=== PATIENT | female | born 2000 | race Caucasian/White ===

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

== ENCOUNTER 2021-03-02 15:05 | Outpatient (REF) | payer MEDICAID, SELFPAY ==
[2021-03-04 01:23] LABS: COVID-19 RT-PCR UVMMC Result Negative (Negative)
== END 2021-03-02 15:06 | disposition home or self-care (01) ==
LOC: LBN 15:05
PROVIDERS: PCP Pediatrics; Visit Provider Physician Assistant Medical
DX: Z20.822 Contact with and (suspected) exposure to COVID-19 (principal); R05 Cough; J02.9 Acute pharyngitis, unspecified
CPT/HCPCS: U0003

== ENCOUNTER 2021-04-25 15:08 | Outpatient (REF) | payer MEDICAID, SELFPAY ==
[2021-04-26 16:22] LABS: COVID-19 RT-PCR UVMMC Result Negative (Negative)
== END 2021-04-25 15:09 | disposition home or self-care (01) ==
LOC: LBN 15:08
PROVIDERS: PCP Pediatrics; Visit Provider Nurse Practitioner Family
DX: Z20.822 Contact with and (suspected) exposure to COVID-19 (principal); J06.9 Acute upper respiratory infection, unspecified
CPT/HCPCS: U0003

== ENCOUNTER 2021-09-12 16:35 | Outpatient (REF) | payer MEDICAID, SELFPAY ==
[2021-09-14 15:00] LABS: Chlamydia Result Negative (Negative); GC Result Negative (Negative)
== END 2021-09-12 16:36 | disposition home or self-care (01) ==
LOC: LBN 16:35
PROVIDERS: PCP Pediatrics; Visit Provider Nurse Practitioner Women's Health
DX: Z11.3 Encounter for screening for infections with a predominantly sexual mode of transmission (principal)
CPT/HCPCS: 87491; 87591

== ENCOUNTER 2021-10-22 14:09 | Outpatient (REF) | payer MEDICAID, SELFPAY ==
[2021-10-24 11:59] LABS: COVID-19 RT-PCR UVMMC Result Negative (Negative)
== END 2021-10-22 14:10 | disposition home or self-care (01) ==
LOC: LBN 14:09
PROVIDERS: PCP Pediatrics; Visit Provider Physician Assistant Medical
DX: Z20.822 Contact with and (suspected) exposure to COVID-19 (principal)
CPT/HCPCS: U0003

== ENCOUNTER 2022-07-08 09:39 | Emergency (ER) | payer MEDICAID, SELFPAY ==
[2022-07-08 09:43] VITALS: BP 130/85; PULSE 96; RESP 18; TEMP 36.7; O2SAT 97
--- NOTE | 2022-07-08 09:48 | NUR.NOTE ---
Nursing Note: pt states she has had multiple episodes of vomiting, dry having and diarrhea since waking up this am. pt does note that she at new [employer] ch[employer] last night and ate not fully cooked pancakes yesterday. Pt did try and drink fluids prior to arrival but was unable to tolerate them. Pt endorses 10 episodes of vomiting and dry heaving this am.
--- NOTE | 2022-07-08 10:17 | W.ED.GENAD ---
Discharge Plan Disposition Patient Disposition: Home Condition: Stable Discharge Details Clinical Impression: Nausea vomiting and diarrhea, Cannabinoid hyperemesis syndrome Primary Care Provider: Clare Limon ED Provider: Marilyn Lewis Home Meds and New Rx's Prescriptions: New promethazine [Promethegan] 25 mg suppository 25 mg CA Q6H PRN (Reason: nausea and vomiting) Qty: 12 0RF Rx Instructions: Use 1 suppository as needed for unresolved nausea vomiting No Action aripiprazole [Abilify] 5 mg tablet 5 mg PO DAILY fluvoxamine 50 mg tablet 50 mg PO DAILY Nexplanon 68 mg implant 1 implant subdermal ONCE Qty: 1 0RF Rx Instructions: as a single dose norethindrone-e.estradiol-iron [ FE 1.5/30 (28)] 1.5 mg-30 mcg (21)/75 mg (7) tablet 1 tab PO DAILY Qty: 28 0RF Discharge Instructions Instructions: Acute Nausea and Vomiting (ED) Additional Instructions: Please abstain from smoking marijuana for approximately 3 days to see if this resolves her symptoms. I was able to speak with pediatric general surgeon Dr. Avila at [facility] who was able to look at the results. She does not suspect an abscess. I do suspect a gastroenteritis Please take nausea medication as prescribed if needed. Bowel rest, advance as tolerated. If this gets worse or returns please follow-up with the pediatric general surgeon's office at [facility] or you may return to the ER if needed. Please call Dr. Pranav Mcgovern With Pediatric General Surgery if needed for Follow up [address] [place], [place] [id number] Follow up with primary care provider in 1-2 days if needed. Return to ED sooner if any worsening or concerns. Increase oral fluids. You may also try to apply capsaicin cream to your abdomen which she can get [id number]. Referrals: [facility] [Outside] Clare Limon [Primary Care Provider] - 2 weeks Discharge Data Discharge Date/Time-TO BE ENTERED AT DEPARTURE: 07/08/22 15:08 Medical Decision Making 22-year-old female presents to the ER with a chief complaint of nausea vomiting diarrhea which began acutely this morning. She does endorse sick contacts. Including her mom and she was in contact with recently. She reports generalized abdominal pain. She is vomiting up clear bilious material. She does have a history of cholecystectomy and history of Nicole-en-Y gastric bypass. She does endorse daily marijuana use, denies any other illicit drugs or alcohol. Work-up ordered including CBC CMP, lipase, urinalysis urine will consider UDS liter of normal saline and 4 Zofran. Will consider imaging pending labs. Verbal diagnosis includes but not limited to gastroenteritis, bacterial gastroenteritis, viral gastroenteritis, hyperemesis cannabinoid syndrome, bowel obstruction, appendicitis. 1051: Critical result obtained from the lab White blood cell count 25,036, she does have a left shift 23.69, upon medication record review patient does have a history of a torn esophagus with viscous air, CT chest abdomen pelvis with contrast ordered due to leukocytosis. Patient does report that she is feeling somewhat better and the nausea medication has helped. 1107: CMP is pending at this time. 1230: Spoke with [facility] regarding CT result radiologist reports that there is fluid and air levels in the gallbladder fossa of concern for possible abscess similar to prior study in October 2019, dilated intrahepatic biliary ducts with free air. See result below. She did report that this is similar to the CT from . 1233: Surgery paged for consultation. 1258: Spoke with Dr. Lugo he recommends 1310:Consult with possible transfer, with [facility] Surgery, Spoke with [facility], they report the are at capacity, Surgery to call me back, images reuested to be pushed by Radiology. 1320: Repeat CBC ordered to ree-kai white blood cell count, patient is complaining of nausea again for milligrams of Zofran ordered. Patient has received 2 L of saline and is infusing without difficulty. Repeat CBC shows white blood cell count that has decreased to 23. 1440: [facility] Pediatric General Surgeon Dr. Dana Dorantes Discussed patient case and details, she was able to personally view the CT abd Pelvis and compare her old exams, she is not super concerned for cholangitis or acute obstruction, She has no elevated lipase, no increased bilirubin, she does not think this is an abscess. She does state that if this continues that patient can follow-up with [facility] pediatric general surgeon office Dr. Miguelito angel or with her. I will give patient some Zofran to go. And discussed strict return instructions. This text was generated using Inforce[employer]ation system, please disregard any oddities of phrase or misspellings. Medical Records Medical records reviewed: Yes I reviewed the patient's medical records. Imaging Data Radiologic Study: Imaging: CT Scan Radiologist's impression: COMPARISON: CT CHEST PE ABD PELVIS W 05/22/2020 23:40 FINDINGS: Lungs: Unremarkable. No consolidation. No masses. Pleural spaces: Unremarkable. No pneumothorax. No pleural effusion. Heart: Unremarkable. No cardiomegaly. No pericardial effusion. Mediastinal space: Residual thymus remaining. Lymph nodes: Unremarkable. No enlarged lymph nodes. Vasculature: Unremarkable. No aortic aneurysm. TARA TOLEDO Preliminary Radiology Report Page 2 of 3 Bones/joints: Unremarkable. No acute fracture. Soft tissues: Unremarkable. IMPRESSION: No acute findings. COMPARISON: CT ABDOMEN PELVIS W 02/04/2019 23:52 FINDINGS: Diaphragm: Hiatal hernia. Liver: Normal. No mass. Gallbladder and bile ducts: Dilated intrahepatic biliary ducts with air. A collection of fluid and air in the gallbladder fossa measuring 5.1 x 2.9 cm. Pancreas: Normal. No ductal dilation. Spleen: Normal. No splenomegaly. Adrenal glands: Normal. No mass. Kidneys and ureters: Normal. No hydronephrosis. Stomach and bowel: A loop of small bowel extends near or into the gallbladder fossa. Fluid and air filled dilated small bowel left upper quadrant. Fluid-filled stomach. Appendix: No evidence of appendicitis. Intraperitoneal space: Unremarkable. No free air. No significant fluid collection. Vasculature: Unremarkable. No abdominal aortic aneurysm. Lymph nodes: Mesenteric lymph nodes. Urinary bladder: Patient is status post cystectomy by history. Reproductive: Unremarkable as visualized. Bones/joints: Unremarkable. No acute fracture. Soft tissues: Unremarkable. IMPRESSION: 1. Free air and free fluid in the gallbladder fossa of concern for possible abscess similar to prior study October 2019. Dilated intrahepatic biliary ducts with free air. Cholecystectomy. 2. Fluid and air distended small bowel left upper quadrant measuring 3.2 cm may represent ileus or early obstruction. 3. Additional findings as discussed above. Lab Data Lab results reviewed: Yes I reviewed the patient's lab results. Labs: Laboratory Tests Range/Units 07/08/22 07/08/22 07/08/22 10:35 10:35 11:18 WBC (4.4-10.8) 10^3/uL 25.36 H* RBC (3.93-5.22) 10^6/uL 5.21 Hgb (11.2-15.7) g/dL 14.5 Hct (36.0-46.0) % 43.7 MCV (80-95) fL 84 MCH (27.0-33.0) pg 27.8 MCHC (32.0-36.0) % 33.2 RDW (11.7-14.6) % 12.5 Plt Count (130-400) 10^3/uL 333 MPV (8.0-11.0) fL 9.2 Immature Gran % 0.6 Neutrophils % 93.4 Lymphocytes % 1.8 Monocytes % 3.8 Eosinophils % 0.1 Basophils % 0.3 Nucleated RBC % (0.0-0.3) % 0.0 Absolute Neutrophils (1.2-6.7) 10^3/uL 23.69 H Absolute Lymphocytes (1.2-3.4) 10^3/uL 0.46 L Absolute Monocytes (0.1-0.8) 10^3/uL 0.96 H Absolute Eosinophils (0.0-0.7) 10^3/uL 0.03 Absolute Basophils (0.0-0.2) 10^3/uL 0.08 Sodium (136-145) mmol/L 141 Potassium (3.5-5.1) mmol/L 3.8 Chloride (98-107) mmol/L 105 Carbon Dioxide (21.0-32.0) mmol/L 26.6 Anion Gap (3-11) mmol/L 9.4 BUN (7-18) mg/dL 12 Creatinine (0.55-1.02) mg/dL 1.0 Est GFR (CKD-EPI 2020) (mL/min/1.73m2) 82.20 Glucose (74-106) mg/dL 137 H Calcium (8.5-10.1) mg/dL 9.3 Magnesium (1.8-2.4) mg/dL 1.6 L Total Bilirubin (0.2-1.0) mg/dL 0.8 AST (15-37) U/L 16 ALT (14-59) U/L 18 Alkaline Phosphatase (46-116) U/L 67 Total Protein (6.4-8.2) g/dL 8.6 H Albumin (3.4-5.0) g/dL 4.6 Lipase (73-393) U/L 99 Urine Color (Yellow) Yellow Urine Clarity (Clear) Clear Urine pH (5-8) 7.0 Ur Specific [place] (1.005-1.025) 1.025 Urine Protein (Negative) mg/dL Trace H Urine Ketones (Negative) mg/dL Negative Urine Blood (Negative) Negative Urine Nitrite (Negative) Negative Urine Bilirubin (Negative) Negative Urine Urobilinogen (Up TO 0.2) EU/dL 0.2 Ur Leukocyte Esterase (Negative) Negative Urine RBC (0-2) HPF Negative Urine WBC (0-5) HPF Negative Ur Epithelial Cells (Negative) HPF Few Urine Crystals (Negative) HPF Negative Urine Bacteria (Negative) HPF Negative Urine Casts (Negative) LPF Negative Urine Mucus (Negative) Trace Ur Culture Indicated? No Urine Glucose (Negative) mg/dL Negative Range/Units 07/08/22 13:26 WBC (4.4-10.8) 10^3/uL 23.41 H RBC (3.93-5.22) 10^6/uL 4.62 Hgb (11.2-15.7) g/dL 13.1 Hct (36.0-46.0) % 39.2 MCV (80-95) fL 85 MCH (27.0-33.0) pg 28.4 MCHC (32.0-36.0) % 33.4 RDW (11.7-14.6) % 12.5 Plt Count (130-400) 10^3/uL 287 MPV (8.0-11.0) fL 9.0 Immature Gran % Neutrophils % Lymphocytes % Monocytes % Eosinophils % Basophils % Nucleated RBC % (0.0-0.3) % Absolute Neutrophils (1.2-6.7) 10^3/uL Absolute Lymphocytes (1.2-3.4) 10^3/uL Absolute Monocytes (0.1-0.8) 10^3/uL Absolute Eosinophils (0.0-0.7) 10^3/uL Absolute Basophils (0.0-0.2) 10^3/uL Sodium (136-145) mmol/L Potassium (3.5-5.1) mmol/L Chloride (98-107) mmol/L Carbon Dioxide (21.0-32.0) mmol/L Anion Gap (3-11) mmol/L BUN (7-18) mg/dL Creatinine (0.55-1.02) mg/dL Est GFR (CKD-EPI 2020) (mL/min/1.73m2) Glucose (74-106) mg/dL Calcium (8.5-10.1) mg/dL Magnesium (1.8-2.4) mg/dL Total Bilirubin (0.2-1.0) mg/dL AST (15-37) U/L ALT (14-59) U/L Alkaline Phosphatase (46-116) U/L Total Protein (6.4-8.2) g/dL Albumin (3.4-5.0) g/dL Lipase (73-393) U/L Urine Color (Yellow) Urine Clarity (Clear) Urine pH (5-8) Ur Specific [place] (1.005-1.025) Urine Protein (Negative) mg/dL Urine Ketones (Negative) mg/dL Urine Blood (Negative) Urine Nitrite (Negative) Urine Bilirubin (Negative) Urine Urobilinogen (Up TO 0.2) EU/dL Ur Leukocyte Esterase (Negative) Urine RBC (0-2) HPF Urine WBC (0-5) HPF Ur Epithelial Cells (Negative) HPF Urine Crystals (Negative) HPF Urine Bacteria (Negative) HPF Urine Casts (Negative) LPF Urine Mucus (Negative) Ur Culture Indicated? Urine Glucose (Negative) mg/dL HPI General Mode of arrival: ambulatory. Date/Time Provider Initiated Documentation: 07/08/22 10:11. Limitations to Documentation: no limitations. Information obtained by: patient, RN notes reviewed and old records reviewed. HPI Narrative: 22-year-old female presents to the ER with a chief complaint of nausea vomiting diarrhea which began acutely this morning. She does endorse sick contacts. Including her mom and she was in contact with recently. She reports generalized abdominal pain. She is vomiting up clear bilious material. She does have a history of cholecystectomy and history of Nicole-en-Y gastric bypass. She does endorse daily marijuana use, denies any other illicit drugs or alcohol. Denies any chance of does have Nexplanon implant. She reports irregular periods. She is actively vomiting upon arrival. Related Data Home Medications Medication Instructions Recorded Confirmed aripiprazole 5 mg tablet (Abilify) 5 mg PO DAILY 07/27/21 09/12/21 fluvoxamine 50 mg tablet 50 mg PO DAILY 07/27/21 09/12/21 etonogestrel 68 mg subdermal 1 implant subdermal ONCE #1 ea 09/12/21 09/12/21 implant (Nexplanon) norethindrone 1.5 mg-ethinyl 1 tab PO DAILY #28 tabs 12/21/21 estradiol 30 mcg(21)/iron 75 mg(7) tablet ( FE .11/14 ()) promethazine 25 mg rectal 25 mg CA Q6H PRN nausea and 07/08/22 suppository (Promethegan) vomiting #12 ea Previous Rx's Medication Instructions Recorded etonogestrel 68 mg subdermal 1 implant subdermal ONCE #1 ea 09/12/21 implant (Nexplanon) norethindrone 1.5 mg-ethinyl 1 tab PO DAILY #28 tabs 12/21/21 estradiol 30 mcg(21)/iron 75 mg(7) tablet ( FE .11/14 ()) promethazine 25 mg rectal 25 mg CA Q6H PRN nausea and 07/08/22 suppository (Promethegan) vomiting #12 ea Allergies Allergy/AdvReac Type Severity Reaction Status Date / Time No Known Allergies Allergy Verified 11/04/21 14:10 General Stated Complaint: Nausea/Vomit/Diar BRENT: 3 Review of Systems All systems reviewed & are unremarkable except as noted in HPI and below Gastrointestinal Gastrointestinal: Reports as per HPI, Reports abdominal pain, Reports diarrhea, Reports nausea and Reports vomiting PFSH All Active Problems (Updated 07/08/22 @ 15:01 by Marilyn Lewis NP) Nausea vomiting and diarrhea (Acute) Cannabinoid hyperemesis syndrome (Acute) Implantable subdermal contraceptive surveillance (Acute 09/12/21) Medical History (Updated 07/08/22 @ 15:01 by Marilyn Lewis NP) Choledochal cyst Surgical History 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 Father No problems noted. Grandmother Diabetes Maternal Aunt Diabetes Breast cancer maternal Social History Smoking/Tobacco Use Status: Current-Occasional Smoking risk assessment performed?: Yes Alcohol Intake: never Drug use: Daily Substance use type: marijuana Do you feel safe at home: Yes Do you feel safe in your relationship?: Yes History History 0 Para Hx # Term Pregnancies Multiple births Hx # Pregnancies Ectopic pregnancies AB induced Hx Number of Living Children AB spontaneous Exam Narrative Exam Narrative: Constitutional: Alert and oriented x3. Appears stated age. Normal body habitus. She is actively vomiting upon arrival clear bilious material. Head: Normocephalic, no trauma. Eyes: Pupils PERRL, Red reflex noted, EOM's intact. Eyelids symmetrical without lesions, discharge, or swelling. ENT: Bilateral TM's WNL, External ear normal to inspection, no mastoid TTP, swelling, or erythema, Nasal turbinates WNL, no nasal discharge. Normal dentition, Posterior pharynx WNL, no exudate. Chest: RRR, Normal S1, S2, distal pulses intact. Resp: Lungs clear to auscultation bilaterally, no wheezes, rales, or rhonchi. Abdomen: Soft, non-distended, Normoactive bowel sounds all 4 quads. Generalized tenderness no palpated masses no guarding With all 4 quadrants with palpation, Musculoskeletal: Normal gait, 5/5 strength to all four extremities. Skin: Slightly pale, no suspicious rashes or lesions. Capillary refill less than 2 sec. Neurologic: Cranial nerves II-XII intact. Alert and oriented x 3. Motor: No deficits noted. Sensory: Intact bilaterally all 4 extremities. Hematologic/Lymphatic: No ecchymosis, no lymphadenopathy. Course Vital Signs Vital signs: Vital Signs Temperature 36.7 C 07/08/22 09:43 Pulse 96 H 07/08/22 09:43 Respiratory Rate 18 07/08/22 09:43 Blood Pressure 130/85 07/08/22 09:43 Pulse Oximetry 97 07/08/22 09:43 Temperature 36.7 C 07/08/22 09:43 Temperature Source Temporal Artery Scan 07/08/22 09:43 Pulse 96 H 07/08/22 09:43 Respiratory Rate 18 07/08/22 09:43 Respiratory Effort Non-Labored 07/08/22 09:45 Blood Pressure 130/85 07/08/22 09:43 Pulse Oximetry 97 07/08/22 09:43 Oxygen Delivery Method Room Air 07/08/22 09:43 Oxygen Flow Rate 0 07/08/22 09:43
[2022-07-08] MEDS: Normal Saline 1,000 ML 1000 ML IV ×2 (10:32→12:11)
[2022-07-08] MEDS: Ondansetron 4 MG/2 ML VIAL IVP ×2 (10:34→13:26)
[2022-07-08 10:42] LABS: Abs Immature Grans 0.14 10^3/uL (0.0-0.06); Absolute Eosinophil Count 0.03 10^3/uL (0.0-0.7); Absolute Lymphocyte Count 0.46 10^3/uL (1.2-3.4); Absolute Neutrophil Count 23.69 10^3/uL (1.2-6.7); Basophils % 0.3; Eosinophils % 0.1; HCT 43.7 % (36.0-46.0); HGB 14.5 g/dL (11.2-15.7); Immature Grans % 0.6; Lymphocytes % 1.8; MCH 27.8 pg (27.0-33.0); MCHC 33.2 % (32.0-36.0); MCV 84 fL (80-95); MPV 9.2 fL (8.0-11.0); Monocytes % 3.8; Neutrophils % 93.4; Platelet Count 333 10^3/uL (130-400); RBC 5.21 10^6/uL (3.93-5.22); RDW 12.5 % (11.7-14.6); RDW-SD 38.1 fL
[2022-07-08 10:45] LABS: Absolute Basophil Count 0.08 10^3/uL (0.0-0.2); Absolute Monocyte Count 0.96 10^3/uL (0.1-0.8)
[2022-07-08 10:50] LABS: WBC 25.36 10^3/uL (4.4-10.8)
--- NOTE | 2022-07-08 11:00 | DI.CT_ITS ---
Exam(s) CT CHEST/ABD/PEL W EXAM: CT CHEST/ABD/PEL W CLINICAL HISTORY: Vomiting, Generalized abd pain, R/O SBO, Perforati. TECHNIQUE: Imaging Protocol: Axial computed tomography images with coronal and sagittal reformatted images were created and reviewed CONTRAST MATERIAL: Intravenous: Omnipaque 350 Contrast volume:100 ml Oral: None COMPARISON: CT CT CHEST PE ABD PELVIS W from 10/28/2019 FINDINGS: CHEST: LUNGS: No infiltrates nor pleural effusions. No significant nodules. No pneumothorax. No findings in the trachea and mainstem bronchi.. MEDIASTINUM: There is no hilar nor mediastinal adenopathy. CARDIAC: Heart size is normal. There is no pericardial effusion.Caliber of the thoracic aorta is wit hin normal limits. OSSEOUS: No significant osseous lesions.. ABDOMEN: There has apparently been prior cholecystectomy. There is pneumobilia. There is some fluid in the gallbladder fossa but upon careful examination of t he multi planer images it appears that there is a probable biliary enterostomy here to explain this f inding. LIVER: There are no focal hepatic lesions nor dilatation of intrahepatic ducts. GALLBLADDER/BILIARY: As above. Gallbladder is apparently surgically absent. PANCREAS: No evidence of pancreatic mass nor dilatation of the pancreatic duct. SPLEEN: Spleen is not enlarged. There are no intrasplenic lesions. Splenic and portal veins are hernandez nt. ADRENALS: There are no significant adrenal masses. KIDNEYS: No calculi nor hydronephrosis. No solid renal masses. No cysts evident. ABDOMINAL AORTA: Abdominal aorta is not enlarged. LYMPH NODES: There is no retroperitoneal nor paraaortic adenopathy. ABDOMINAL WALL: No evidence of significant anterior abdominal wall nor inguinal hernia. GI: There is no evidence of bowel obstruction. PELVIS: LYMPH NODES: There is no intrapelvic nor inguinal adenopathy. GI: No evidence of appendicitis.No evidence of sigmoid diverticulitis. URINARY BLADDER: No calculi nor masses evident REPRODUCTIVE: Uterus and adnexal regions unremarkable. No free fluid in the pelvis. OSSEOUS: No significant osseous lesions. IMPRESSION: 1. No significant intrathoracic findings. 2. Right upper quadrant abdominal findings as described above. There has apparently been prior hortencia cystectomy. There is some fluid and air seen in this region but upon careful examination of the mult iplanar images it appears that there has been prior biliary enterostomy to explain this finding (as o pposed to an actual abscess). 3. No evidence of significant acute pancreas findings. First read by [facility]. Final report called by myself to ER physician 07/08/2022 p.m. RADIATION DOSE DELIVERED: 1,305.13mGy.cm Total DLP DATA REPOSITORY: All CT scans at this facility are submitted to the National Radiology Data Registry (NRDR) Dose Index Registry (DIR) with the [employer] (ACR). RADIATION OPTIMIZATION: All CT scans at this facility use at least one of these dose optimization te chniques: automated exposure control; mA and/or kV adjustment per patient size (includes targeted exa ms where dose is matched to clinical indication); or iterative reconstruction.
[2022-07-08 11:15] LABS: ALT 18 U/L (14-59); AST 16 U/L (15-37); Albumin 4.6 g/dL (3.4-5.0); Alkaline Phosphatase 67 U/L (46-116); Anion Gap 9.4 mmol/L (3-11); BUN 12 mg/dL (7-18); Bilirubin, Total 0.8 mg/dL (0.2-1.0); CO2 26.6 mmol/L (21.0-32.0); Calcium 9.3 mg/dL (8.5-10.1); Chloride 105 mmol/L (98-107); Glucose 137 mg/dL (74-106); Lipase 99 U/L (73-393); Magnesium 1.6 mg/dL (1.8-2.4); Potassium 3.8 mmol/L (3.5-5.1); Sodium 141 mmol/L (136-145); Total Protein 8.6 g/dL (6.4-8.2)
[2022-07-08 11:29] LABS: Bilirubin Negative (Negative); Blood Negative (Negative); Clarity Clear (Clear); Glucose Negative (Negative); Ketones Negative (Negative); Leukocyte Esterase Negative (Negative); Nitrite Negative (Negative); Specific Gravity 1.025 (1.005-1.025); Urobilinogen 0.2 EU/dL (Up TO 0.2)
[2022-07-08 11:43] LABS: Bacteria Negative HPF (Negative); C & S Indicated? No; Casts Negative LPF (Negative); Crystals Negative HPF (Negative); Epithelial Cells Few HPF (Negative); Mucus Trace (Negative); RBC Negative HPF (0-2); WBC Negative HPF (0-5)
[2022-07-08] MEDS: Omnipaque 350 MG/ML 100 ML BTL IJ (11:47)
[2022-07-08] MEDS: Normal Saline - Diluent 50 ML VIAL IJ (11:47)
[2022-07-08] MEDS: Normal Saline Flush 10 ML SYR IVP (11:48)
--- NOTE | 2022-07-08 12:25 | DI.VRAD_ITS ---
Addendum created by Saskia Tobias MD on 07/08/2022 12:29:22 PM EST: THIS REPORT CONTAINS FINDINGS THAT MAY BE CRITICAL TO PATIENT CARE. The findings were verbally communicated via telephone conference with YOVANY AUGUSTIN at 12:28 PM EST on 07/08/2022. The findings were acknowledged and understood. Initial report created on 07/08/2022 12:24:34 PM EST: PROCEDURE INFORMATION: Exam: CT Chest With Contrast; Diagnostic Exam date and time: 07/08/2022 11:36 AM Age: 22 years old Clinical indication: Other: Vomiting, generalized abd pain, R/O sbo, perforati; Prior surgery; Surgery date: 6+ months; Surgery type: Gatric by -pass 2018 TECHNIQUE: Imaging protocol: Diagnostic computed tomography of the chest with contrast. 3D rendering (Not supervised by radiologist): MIP and/or 3D reconstructed images were created by the technologist. Contrast material: OMNIPAQU 350; Contrast volume: 100 ml; Contrast route: INTRAVENOUS (IV); COMPARISON: CT CHEST PE ABD PELVIS W 05/22/2020 23:40 FINDINGS: Lungs: Unremarkable. No consolidation. No masses. Pleural spaces: Unremarkable. No pneumothorax. No pleural effusion. Heart: Unremarkable. No cardiomegaly. No pericardial effusion. Mediastinal space: Residual thymus remaining. Lymph nodes: Unremarkable. No enlarged lymph nodes. Vasculature: Unremarkable. No aortic aneurysm. Bones/joints: Unremarkable. No acute fracture. Soft tissues: Unremarkable. IMPRESSION: No acute findings. PROCEDURE INFORMATION: Exam: CT Abdomen And Pelvis With Contrast Exam date and time: 07/08/2022 11:36 AM Age: 22 years old Clinical indication: Other: Vomiting, generalized abd pain, R/O sbo, perforati; Prior surgery; Surgery date: 6+ months; Surgery type: Gatric by -pass 2018 TECHNIQUE: Imaging protocol: Computed tomography of the abdomen and pelvis with contrast. 3D rendering (Not supervised by radiologist): MIP and/or 3D reconstructed images were created by the technologist. Contrast material: OMNIPAQU 350; Contrast volume: 100 ml; Contrast route: INTRAVENOUS (IV); COMPARISON: CT ABDOMEN PELVIS W 02/04/2019 23:52 FINDINGS: Diaphragm: Hiatal hernia. Liver: Normal. No mass. Gallbladder and bile ducts: Dilated intrahepatic biliary ducts with air. A collection of fluid and air in the gallbladder fossa measuring 5.1 x 2.9 cm. Pancreas: Normal. No ductal dilation. Spleen: Normal. No splenomegaly. Adrenal glands: Normal. No mass. Kidneys and ureters: Normal. No hydronephrosis. Stomach and bowel: A loop of small bowel extends near or into the gallbladder fossa. Fluid and air filled dilated small bowel left upper quadrant. Fluid-filled stomach. Appendix: No evidence of appendicitis. Intraperitoneal space: Unremarkable. No free air. No significant fluid collection. Vasculature: Unremarkable. No abdominal aortic aneurysm. Lymph nodes: Mesenteric lymph nodes. Urinary bladder: Patient is status post cystectomy by history. Reproductive: Unremarkable as visualized. Bones/joints: Unremarkable. No acute fracture. Soft tissues: Unremarkable. IMPRESSION: 1. Free air and free fluid in the gallbladder fossa of concern for possible abscess similar to prior study October 2019. Dilated intrahepatic biliary ducts with free air. Cholecystectomy. 2. Fluid and air distended small bowel left upper quadrant measuring 3.2 cm may represent ileus or early obstruction. 3. Additional findings as discussed above. Dictated and Authenticated by: Saskia Tobias MD. Ordering:RAHEL Sanders MD
[2022-07-08 13:32] LABS: HCT 39.2 % (36.0-46.0); HGB 13.1 g/dL (11.2-15.7); MCH 28.4 pg (27.0-33.0); MCHC 33.4 % (32.0-36.0); MCV 85 fL (80-95); Platelet Count 287 10^3/uL (130-400); RBC 4.62 10^6/uL (3.93-5.22); RDW 12.5 % (11.7-14.6); RDW-SD 38.3 fL; WBC 23.41 10^3/uL (4.4-10.8)
[2022-07-08] MEDS: Ondansetron O.D.T. 4 MG TABEF, 3 TABS/BTL PO (15:04)
[2022-07-08 15:07] VITALS: BP 112/74; PULSE 72; RESP 18; O2SAT 99
== END 2022-07-08 15:08 | disposition home or self-care (01) ==
PROVIDERS: Emergency Provider Registered Nurse Emergency; PCP Pediatrics
DX: R11.2 Nausea with vomiting, unspecified (principal); R19.7 Diarrhea, unspecified; F12.90 Cannabis use, unspecified, uncomplicated; R10.84 Generalized abdominal pain; D72.829 Elevated white blood cell count, unspecified; Z98.84 Bariatric surgery status
CPT/HCPCS: 74177; 80053; 81025; 83690; 85027; 96361; 96374; 96376; 99284; 71260; 81003; 81015; 83735; 85025; J2405; J3490

== ENCOUNTER 2022-12-07 07:27 | Emergency (ER) | payer MEDICAID, SELFPAY ==
[2022-12-07 07:31] VITALS: BP 114/68; PULSE 95; RESP 16; TEMP 36.9; O2SAT 97
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
[2022-12-07] MEDS: Bacitracin 30 GM TUBE TP (08:19)
== END 2022-12-07 08:19 | disposition home or self-care (01) ==
PROVIDERS: Emergency Provider Physician Assistant; PCP Pediatrics
DX: T24.231A Burn of second degree of right lower leg, initial encounter (principal); X17.XXXA Contact with hot engines, machinery and tools, initial encounter
CPT/HCPCS: 99283; 99284

== ENCOUNTER 2023-03-16 13:15 | Outpatient (REF) | payer MEDICAID, SELFPAY ==
[2023-03-16 20:42] LABS: Source Nasal/Nares
[2023-03-16 21:25] LABS: COVID-19 PCR Negative (Negative)
== END 2023-03-16 13:16 | disposition home or self-care (01) ==
LOC: LBN 13:15
PROVIDERS: PCP Pediatrics; Visit Provider Physician Assistant Medical
DX: J02.9 Acute pharyngitis, unspecified (principal); Z20.822 Contact with and (suspected) exposure to COVID-19
CPT/HCPCS: 87635; 87070

== ENCOUNTER 2023-05-23 10:15 | Emergency (ER) | payer MEDICAID, SELFPAY ==
[2023-05-23 10:23] VITALS: BP 113/43; PULSE 79; RESP 20; TEMP 36.8; O2SAT 99
--- NOTE | 2023-05-23 10:46 | ED.GENADUL_ITS ---
Discharge Plan Disposition Patient Disposition: Home Condition: Stable Discharge Details Chief Complaint: GenMedical Clinical Impression: Blood in stool Primary Care Provider: Clare Limon ED Provider: Liban Abreu Home Meds and New Rx's Prescriptions: No Action aripiprazole [Abilify] 5 mg tablet 5 mg PO DAILY Hold Instructions: Pt Stopped/Never Started fluvoxamine 50 mg tablet 50 mg PO DAILY Hold Instructions: Pt Stopped/Never Started Nexplanon 68 mg implant 1 implant subdermal ONCE Rx Instructions: as a single dose Discharge Instructions Instructions: Rectal Bleeding (ED) Additional Instructions: Please follow-up closely with primary care physician and GI specialist. Please return to the emergency department for any worsening symptoms. If you have any issues obtaining close follow-up please call or return to the emergency depar tment Medical Decision Making 22-year-old female presents after 2 episodes of red blood admixed with her stool over the last 24 hours, no abdominal pain nausea or vomiting. No weight loss no fevers no chills. No recent travel. No family history of Crohn's or ulcerative colitis or celiac disease. Normal external and digital rectal examination, faintly positive guaiac study normal coloration to stool. Consider small anal fissure versus small hemorrhoid versus early enterocolitis versus early inflammatory bowel disease versus food allergy versus polyp versus malignancy however given patient's stable state acute nature of blood admixed in stool no systemic signs of illness with normal examination patient's work-up can be done in a staged manner on an outpatient basis through primary care and GI follow-up closely. Patient agreeable to this plan. Given strict return precautions for any worsening symptoms or inability to obtain prompt follow-up. HPI General Date/Time Provider Initiated Documentation: 05/23/23 10:16 . HPI Narrative: 22-year-old female presents with 2 episodes of blood admixed with stool over the last 24 hours, mild left flank discomfort now resolved. No nausea no vomiting. No recent travel. No known family history of ulcerative colitis or Crohn's disease. No history of celiac disease. Does have a remote history of gallbladder removal due to biliary cyst. Related Data Home Medications Medication Instructions Recorded Confirmed aripiprazole 5 mg tablet (Abilify) 5 mg PO DAILY 07/27/21 05/23/23 fluvoxamine 50 mg tablet 50 mg PO DAILY 02/09/22 12/06/23 etonogestrel 68 mg subdermal 1 implant subdermal ONCE 04/04/23 05/23/23 implant (Nexplanon) Allergies Allergy/AdvReac Type Severity Reaction Status Date / Time No Known Allergies Allergy Verified 05/23/23 10:22 General Stated Complaint: GenMedical BRENT: 3 Review of Systems Narrative: Review of Systems Constitutional: negative Eyes: negative ENT: negative Cardiovascular: negative Respiratory: negative Gastrointestinal: Rectal bleeding : negative Musculoskeletal: negative Skin: negative Neurologic: negative Psych: negative PFSH All Active Problems (Updated 05/23/23 @ 11:02 by Liban Abreu MD) Blood in stool (Acute) Implantable subdermal contraceptive surveillance (Acute 09/12/21) Medical History (Updated 05/23/23 @ 11:02 by Liban Abreu MD) Choledochal cyst Surgical History 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 Father No problems noted. Grandmother Diabetes Maternal Aunt Diabetes Breast cancer maternal Social History Smoking/Tobacco Use Status: Current every day Tobacco Type: e-cigarettes Smoking risk assessment performed?: Yes Alcohol Intake: current Alcohol Intake frequency: a few times a month Drug use: Daily Substance use type: marijuana Do you feel safe at home: Yes Do you feel safe in your relationship?: Yes History History 0 Para Hx # Term Pregnancies Multiple births Hx # Pregnancies Ectopic pregnancies AB induced Hx Number of Living Children AB spontaneous Exam Narrative Exam Narrative: Physical Examination General: alert, awake, cooperative, resting comfortably, no acute distress HEENT: normocephalic, atraumatic; PERRL, EOM intact, conjunctiva normal; no nasal discharge; moist mucous membranes, oral and pharyngeal mucosa normal, tolerating secretions Neck: supple, trachea midline; full ROM Chest: normal to inspection Respiratory: normal respiratory effort, speaking in full sentences Cardiac: regular rate, regular rhythm, S1S2 intact, no murmurs rubs or gallops GI: abdomen soft, non-tender, non-distended; no palpable mass or hepatosplenomegaly; normal external rectal examination, normal digital rectal examination, no palpable masses or lesions, normal appearing stool, faintly guaiac positive Skin: no lesions, rashes or trauma appreciated Neuro: AAOx3, normal speech, moving all extremities Psych: Appropriate mood and affect Course Vital Signs Vital signs: Vital Signs Temperature 36.8 C 05/23/23 10:23 Pulse 79 05/23/23 10:23 Respiratory Rate 20 05/23/23 10:23 Blood Pressure 113/43 L 05/23/23 10:23 Pulse Oximetry 99 05/23/23 10:23 Temperature 36.8 C 05/23/23 10:23 Temperature Source Oral 05/23/23 10:23 Pulse 79 05/23/23 10:23 Respiratory Rate 20 05/23/23 10:23 Respiratory Effort Normal 05/23/23 10:27 Blood Pressure 113/43 L 05/23/23 10:23 Blood Pressure Position Sitting 05/23/23 10:23 Pulse Oximetry 99 05/23/23 10:23 Oxygen Delivery Method Room Air 05/23/23 10:23 Oxygen Flow Rate 0 05/23/23 10:23
== END 2023-05-23 11:11 | disposition home or self-care (01) ==
PROVIDERS: Emergency Provider Emergency Medicine; PCP Pediatrics
DX: K92.1 Melena (principal)
CPT/HCPCS: 99281; 99282

== ENCOUNTER 2024-05-20 13:58 | Outpatient (REF) | payer MEDICAID, SELFPAY ==
--- NOTE | 2024-05-20 13:40 | PAPFT_PTH ---
PATIENT: Candice Dowling LOC: [facility] U#:[id number] AGE/SX: 23/F ROOM: RE05/20/[address]: Evelina Baez NP : 2000 BED: DIS: 05/20/2024 SPEC #: [id number] RECD: 05/20/24 17:48 STATUS: SHERRON RETito #: [id number] ISABELLE: 05/20/24 13:[address]: Evelina Baez NP DEPT: [facility] Cytology RECD BY: Debbie Joseph ENTERED: 05/20/24 17:48 SP TYPE: PAPFT RADHA DR: Maggie Goel, SEISMOGRAPH CHIEF Tissues: 1 - CX/ENDOCX FOR PAP SMEARS Procedures: PAP THIN PREP/UVM Screening Comments:
== END 2024-05-20 13:59 | disposition home or self-care (01) ==
LOC: LBN 13:58
PROVIDERS: PCP Nurse Practitioner Family; Visit Provider Nurse Practitioner Women's Health
DX: Z01.419 Encounter for gynecological examination (general) (routine) without abnormal findings (principal); Z12.4 Encounter for screening for malignant neoplasm of cervix; Z31.69 Encounter for other general counseling and advice on procreation
CPT/HCPCS: 88142

== ENCOUNTER 2024-08-06 02:36 | Outpatient (CLI) | payer MEDICAID, SELFPAY ==
[2024-08-06 10:35] LABS: HCT 40.5 % (36.0-46.0); HGB 13.4 g/dL (11.2-15.7); MCH 28.6 pg (27.0-33.0); MCHC 33.1 % (32.0-36.0); MCV 87 fL (80-95); MPV 9.4 fL (8.0-11.0); Platelet Count 271 10^3/uL (130-400); RBC 4.68 10^6/uL (3.93-5.22); RDW 13.1 % (11.7-14.6); RDW-SD 41.1 fL; WBC 9.85 10^3/uL (4.4-10.8)
[2024-08-06 11:14] LABS: TSH (W/Ref FT4) 1.97 uIU/mL (0.36-3.74)
[2024-08-06 14:07] LABS: Vitamin D 25 Total 26.7 ng/mL (30-100)
== END 2024-08-06 02:37 | disposition home or self-care (01) ==
LOC: LBO 02:36
PROVIDERS: PCP Nurse Practitioner Family; Visit Provider Nurse Practitioner Family
DX: F41.9 Anxiety disorder, unspecified (principal); F32.A Depression, unspecified
CPT/HCPCS: 36415; 82306; 85027; 84443

== ENCOUNTER 2024-09-30 15:06 | Outpatient (CLI) | payer MEDICAID, SELFPAY ==
[2024-09-30 19:05] LABS: Hepatitis B Surface Ag Negative (Negative)
[2024-09-30 19:37] LABS: HIV-1/2 Ag & Ab Screen Negative (Negative)
[2024-09-30 19:38] LABS: Hepatitis C Ab w Rflx HCV PCR Negative (Negative)
[2024-10-01 12:00] LABS: Syphilis Serology (RPR) Negative (Negative)
[2024-10-01 12:40] LABS: GC Result Negative (Negative)
[2024-10-01 13:00] LABS: Specimen Description URINE
[2024-10-01 13:01] LABS: Chlamydia Result Positive (Negative)
== END 2024-09-30 15:07 | disposition home or self-care (01) ==
LOC: LBO 15:06
PROVIDERS: PCP Nurse Practitioner Family; Visit Provider Nurse Practitioner Family
DX: Z11.3 Encounter for screening for infections with a predominantly sexual mode of transmission (principal)
CPT/HCPCS: 36415; 86803; 87340; 87389; 87491; 87591; 86592